=== PATIENT | female | born 1990 | race American Indian/Alaskan Native ===

== ENCOUNTER 2020-12-19 13:13 | Emergency (ER) | payer OTHER ==
[2020-12-19] MEDS ORDERED: ACETAMINOPHEN 325 MG TAB PO ONE (14:53)
--- NOTE | 2020-12-19 14:54 | Emergency Department Report ---
ED Chest Pain HPI - General Chief Complaint: Chest Pain Stated Complaint: CHEST PAIN/SOB PUI?: No Time Seen by Provider: 12/19/20 13:54 Source: patient Mode of arrival: Ambulatory Limitations: No Limitations - History of Present Illness Initial Comments: 30-year-old female who is obese and has a history of iron deficiency anemia but denies any other significant past medical history presents to the ER today with complaints of substernal chest pain. Patient states that the pain started 4 days ago. She states that it has been a sharp, sometimes achy sometimes type pain which has been intermittent in nature with associated "mild" shortness of breath and also associated right-sided abdominal pain which has also been intermittent. She reports mild intermittent nausea but no vomiting. She denies any diarrhea, or any other bowel changes. She reports urinary frequency but denies any dysuria, hematuria or any abnormal vaginal discharge or bleeding. Patient states that her last menstrual cycle was November 12, and she did take a home test and it was positive. She has not followed up with MARRIAGE THERAPIST to establish for care. She states that the chest pain and abdominal pain can be worse depending on certain positions. She states that sometimes when she changes position it tends to relieve the pain sometimes. She denies any lower extremity swelling or calf pain. Patient states that she had a cardiology evaluation around 2010 or 2011. She states at that time she was sent over to the loom blower office because her MARRIAGE THERAPIST thought she may have had a mitral valve prolapse. She states that she had an echocardiogram and also a treadmill stress test at that time and both were normal. Patient denies any history of PE or DVT and other than being she denies any other risk factors for PE or DVT. She is G3, P1 Ab2. She states that she took 1 dose of the Moderna covid vaccine about 3 to 4 weeks ago and has not taken her second dose as yet. Complaint: chest pain -: Gradual - Related Data Previous Rx's Medication Instructions Recorded Last Taken Type Acetaminophen [Acetaminophen 8 650 mg PO Q8HR PRN #20 tablet.er 12/19/20 Unknown Rx Hour] Allergies Allergy/AdvReac Type Severity Reaction Status Date / Time Penicillins Allergy Unknown Verified 12/19/20 13:16 Heart Score - HEART Score History: Slightly suspicious EKG: Normal Age: < 45 Risk factors: 1-2 risk factors Troponin: < normal limit HEART Score: 1 - EKG Read Time Time EKG Completed: 13:34 EKG Read Time: 13:45 - Critical Actions Critical Actions: 0-3 pts:0.9-1.7%risk of adverse cardiac event.Candidate for discharge ED Review of Systems ROS: Stated complaint: CHEST PAIN/SOB Other details as noted in HPI Comment: All other systems reviewed and negative Constitutional: denies: chills, fever Eyes: denies: eye pain, eye discharge, vision change ENT: denies: ear pain, throat pain, dental pain, hearing loss, epistaxis, congestion Respiratory: shortness of breath. denies: cough, orthopnea, SOB with exertion, SOB at rest, wheezing Cardiovascular: chest pain Endocrine: no symptoms reported Gastrointestinal: abdominal pain, nausea. denies: vomiting, diarrhea, constipation, hematemesis, hematochezia Genitourinary: denies: urgency, dysuria, frequency, hematuria, discharge, abnormal menses, dyspareunia Musculoskeletal: denies: back pain, joint swelling, arthralgia Skin: denies: rash, lesions, change in color, change in hair/nails, pruritus Neurological: denies: headache, weakness, numbness, paresthesias, confusion, abnormal gait, vertigo Psychiatric: denies: anxiety, depression, visual hallucinations, homicidal thoughts, suicidal thoughts Hematological/Lymphatic: denies: easy bleeding, easy bruising, swollen glands ED Past Medical Hx - Past Medical History Previous Medical History?: No - Surgical History Past Surgical History?: No - Medications Home Medications: Home Medications Medication Instructions Recorded Confirmed Last Taken Type Acetaminophen [Acetaminophen 8 650 mg PO Q8HR PRN #20 tablet.er 12/19/20 Unknown Rx Hour] ED Physical Exam - General Limitations: No Limitations General appearance: alert, anxious, obese - Head Head exam: Present: atraumatic, normocephalic, normal inspection - Eye Eye exam: Present: normal appearance, PERRL, EOMI Pupils: Present: normal accommodation - ENT ENT exam: Present: normal exam, mucous membranes moist - Respiratory Respiratory exam: Present: normal lung sounds bilaterally. Absent: respiratory distress, wheezes, rales, rhonchi - Cardiovascular Cardiovascular Exam: Present: regular rate, normal rhythm, normal heart sounds - GI/Abdominal GI/Abdominal exam: Present: soft, tenderness (Mild ttp RUQ). Absent: distended, guarding, rebound - Extremities Exam Extremities exam: Present: normal inspection, full ROM. Absent: calf tenderness - Neurological Exam Neurological exam: Present: alert, oriented X3, CN II-XII intact, normal gait - Psychiatric Psychiatric exam: Present: normal affect, normal mood - Skin Skin exam: Present: intact ED Course Vital Signs 12/19/20 12/19/20 13:19 19:28 Temperature 98.4 F Pulse Rate 91 H 86 Respiratory 18 12 Rate Blood Pressure 154/93 146/87 O2 Sat by Pulse 97 100 Oximetry ED Medical Decision Making - Lab Data Result diagrams: 12/19/20 14:56 12/19/20 14:56 - EKG Data -: EKG Interpreted by Pa EKG shows normal: sinus rhythm Rate: normal (93) - Radiology Data Radiology results: report reviewed Patient: ARNOLDO FLETCHER MR#: [id number] : 1990 Acct:[id number] Age/Sex: 30 / F ADM Date: 12/19/20 Loc: ED Attending Dr: Ordering Physician: SAM CASAREZ Date of Service: 12/19/20 Procedure(s): US abdomen limited Accession Number(s): [id number] cc: SAM CASAREZ LIMITED RUQ ABDOMINAL ULTRASOUND INDICATION: RUQ abd pain. COMPARISON: No relevant prior imaging study available. FINDINGS: Pancreas: Visualized portions show no significant abnormality. Abdominal Aorta: No significant abnormality. IVC: No significant abnormality. Liver: No significant abnormality. Normal hepatopedal blood flow in the main portal vein. Gallbladder: No significant abnormality. Bile ducts: No significant abnormality. Common bile duct measures 6 mm. Right kidney: No significant abnormality visualized.. Free fluid: None. Additional Findings: None. IMPRESSION: 1. Normal exam. Signer Name: Ari Cleary MD Signed: 12/19/2020 5:21 PM Workstation Name: [id number] Transcribed By: DANIAL Dictated By: Ari Cleary MD Electronically Authenticated By: Ari Cleary MD Signed Date/Time: 12/19/201720 DD/ 20 TD/TT: Patient: ARNOLDO FLETCHER MR#: [id number] : 1990 Acct:[id number] Age/Sex: 30 / F ADM Date: 12/19/20 Loc: ED Attending Dr: Ordering Physician: SAM CASAREZ Date of Service: 12/19/20 Procedure(s): XR chest 1V ap Accession Number(s): [id number] cc: SAM CASAREZ Fluoro Time In Minutes: CHEST 1 VIEW 12/19/2020 5:02 PM INDICATION / CLINICAL INFORMATION: Chest Pain. COMPARISON: None available. FINDINGS: SUPPORT DEVICES: None. HEART / MEDIASTINUM: No significant abnormality. LUNGS / PLEURA: No significant pulmonary or pleural abnormality. No pneumothorax. ADDITIONAL FINDINGS: No significant additional findings. IMPRESSION: 1. No acute findings. Signer Name: Ari Cleary MD Signed: 12/19/2020 5:13 PM Workstation Name: [id number] Transcribed By: DANIAL Dictated By: Ari Cleary MD Electronically Authenticated By: Ari Cleary MD Signed Date/Time: 12/19/201712 DD/ 12 TD/TT: Patient: ARNOLDO FLETCHER MR#: [id number] : 1990 Acct:[id number] Age/Sex: 30 / F ADM Date: 12/19/20 Loc: ED Attending Dr: Ordering Physician: SAM CASAREZ Date of Service: 12/19/20 Procedure(s): US OB transvaginal Accession Number(s): [id number] cc: SAM CASAREZ OB Ultrasound HISTORY: low abd pain/quant 6298. TECHNIQUE: Grayscale and color imaging performed. COMPARISON: No relevant comparison imaging FINDINGS: Uterus measures 11.8 x 7.1 x 8.4 cm with endometrial echocomplex measuring 16 mm. There is a tiny cystic structure in the endometrium measuring 7 mm which would yield a gestational age of 5 weeks and 3 days which closely matches the clinical gestational age of 5 weeks and 2 days. No yolk sac or pole identified. No cardiac activity. The ovaries are unremarkable with no pelvic free fluid. IMPRESSION: Questionable early intrauterine . Close follow-up r ecommended as needed. Signer Name: Maximilian Martines MD Signed: 12/19/2020 5:58 PM Workstation Name: [id number] Transcribed By: CHANDANA Dictated By: Maximilian Martines MD Electronically Authenticated By: Maximilian Martines MD Signed Date/Time: 12/19/201757 DD/ 55 TD/TT: - Medical Decision Making Labs reviewed -CBC and CMP unremarkable. Troponins negative. EKG shows normal sinus rhythm, without any acute ischemic changes, STEMI or significant dysrhythmia. Chest x-ray shows nothing acute. Urinalysis negative for UTI right upper quadrant abdominal ultrasound negative for anything acute. OB ultrasound shows Uterus measures 11.8 x 7.1 x 8.4 cm with endometrial echo complex measuring 16 mm. There is a tiny cystic structure in the endometrium measuring 7 mm which would yield a gestational age of 5 weeks and 3 days which closely matches the clinical gestational age of 5 weeks and 2 days. No yolk sac or pole identified. No cardiac activity. Patient currently resting comfortably. She is not in any acute pain or respi ratory distress. She has been ambulatory in the ER, with normal gait and she is neurologically intact. Her Vital signs are stable. Patient is , but she is not tachycardic or hypoxic, she has no calf pain or lower extremity swelling, and no other risk factors for PE or DVT. This point, low suspicion that the chest pain is related to a PE. I also do not suspect that the pain is related to unstable angina requiring admission to the hospital. Other than obesity she has no other risk factors for cardiac disease including no family history. Denies any indication at this time for any further testing, or admission to the hospital. Patient is a non surgical abdominal exam and therefore abdominal CT not indicated at this time. Discussed all labs including EKG results, and ultrasound results of chest x-ray results with patient. Exact cause of her symptoms at this time unclear but I recommend close follow-up with her PCP and MARRIAGE THERAPIST. She understands to return to the ER if any of her symptoms worsens. Patient expressed understanding of all instructions and agree with plan. Patient stable at time of discharge Critical care attestation.: If time is entered above; I have spent that time in minutes in the direct care of this critically ill patient, excluding procedure time. ED Disposition Clinical Impression: Nonspecific chest pain, Right sided abdominal pain, Abdominal pain during Disposition: 01 HOME / SELF CARE / HOMELESS Is pt being admited?: No Does the pt Need Aspirin: No Condition: Stable Instructions: Nonspecific Chest Pain, Adult, Abdominal Pain, Adult, Ea sy-to-Read, Abdominal Pain During Additional Instructions: Recommend taking Tylenol as needed for pain. I recommend following up with your MARRIAGE THERAPIST as scheduled next 2 to 3 weeks. Also recommend follow-up with your primary care doctor especially continue to have discomfort in your chest but if your abdominal pain or chest pain worsens in any way return immediately to the ER. Prescriptions: Acetaminophen [Acetaminophen 8 Hour] 650 mg PO Q8HR PRN #20 tablet.er PRN Reason: Pain Referrals: PRIMARY CARE,MD [Primary Care Provider] - 3-5 Days Forms: Work/School Release Form(ED) Time of Disposition: 18:52 Print Language: TAJIK
[2020-12-19 15:34] LABS: Alanine Aminotransferase 12 units/L (7-56); Blood Urea Nitrogen 10 mg/dL (7-17); Calcium 9.2 mg/dL (8.4-10.2); Hemolysis Index 7
[2020-12-19 15:36] LABS: BUN/Creatinine Ratio 14
[2020-12-19 15:37] LABS: Basophils % (Auto) 0.3 % (0.0-1.8); Eosinophils # (Auto) 0.1 K/mm3 (0.0-0.4); Eosinophils % (Auto) 1.3 % (0.0-4.3); Hematocrit 30.6 % (30.3-42.9); Hemoglobin 10.2 gm/dl (10.1-14.3); Lymphocytes # (Auto) 1.9 K/mm3 (1.2-5.4); Lymphocytes % (Auto) 26.7 % (13.4-35.0); Mean Corpuscular HGB Conc 33 % (30-34); Mean Corpuscular Volume 77 fl (79-97); Monocytes # (Auto) 0.5 K/mm3 (0.0-0.8); Monocytes % (Auto) 6.7 % (0.0-7.3); Platelet Count 296 K/mm3 (140-440); Red Cell Distribution Width 18.5 % (13.2-15.2)
--- NOTE | 2020-12-19 17:17 | XRay Report ---
CHEST 1 VIEW 12/19/2020 5:02 PM INDICATION / CLINICAL INFORMATION: Chest Pain. COMPARISON: None available. FINDINGS: SUPPORT DEVICES: None. HEART / MEDIASTINUM: No significant abnormality. LUNGS / PLEURA: No significant pulmonary or pleural abnormality. No pneumothorax. ADDITIONAL FINDINGS: No significant additional findings. IMPRESSION: 1. No acute findings. Signer Name: Ari Cleary MD Signed: 12/19/2020 5:13 PM Workstation Name: [id number]
--- NOTE | 2020-12-19 17:26 | Ultrasound Report ---
LIMITED RUQ ABDOMINAL ULTRASOUND INDICATION: RUQ abd pain. COMPARISON: No relevant prior imaging study available. FINDINGS: Pancreas: Visualized portions show no significant abnormality. Abdominal Aorta: No significant abnormality. IVC: No significant abnormality. Liver: No significant abnormality. Normal hepatopedal blood flow in the main portal vein. Gallbladder: No significant abnormality. Bile ducts: No significant abnormality. Common bile duct measures 6 mm. Right kidney: No significant abnormality visualized.. Free fluid: None. Additional Findings: None. IMPRESSION: 1. Normal exam. Signer Name: Ari Cleary MD Signed: 12/19/2020 5:21 PM Workstation Name: [id number]
--- NOTE | 2020-12-19 18:02 | Ultrasound Report ---
OB Ultrasound HISTORY: low abd pain/quant 6298. TECHNIQUE: Grayscale and color imaging performed. COMPARISON: No relevant comparison imaging FINDINGS: Uterus measures 11.8 x 7.1 x 8.4 cm with endometrial echocomplex measuring 16 mm. There is a tiny cystic structure in the endometrium measuring 7 mm which would yield a gestational age of 5 we eks and 3 days which closely matches the clinical gestational age of 5 weeks and 2 days. No yolk sac or pole identified. No cardiac activity. The ovaries are unremarkable with no pelvic free fluid. IMPRESSION: Questionable early intrauterine . Close follow-up recommended as needed. Signer Name: Maximilian Martines MD Signed: 12/19/2020 5:58 PM Workstation Name: [id number]
[2020-12-19 18:41] LABS: Bilirubin,Urine NEG (Negative); Blood,Urine NEG (Negative); Color,Urine Yellow (Yellow); Mucus,Urine FEW /HPF; Protein,Urine <15 mg/dL mg/dL (Negative); Urobilinogen,Urine < 2.0 mg/dL (<2.0)
[2020-12-19 19:31] VITALS: BP 146/87
--- NOTE | 2020-12-20 08:34 | Electrocardiograph Report ---
[facility] Test Date: 2020-12-19 Test Time: 13:34:26 Pat Name: ARNOLDO FLETCHER Department: Room: Gender: F Wire Fence Erector: NURSE : 1990 Requested By: SAM CASAREZ Order Number: [id number] Reading MD: Nacho Loyd Measurements Intervals [place] Rate: 93 P: 49 OK: 182 QRS: -2 QRSD: 103 T: 42 QT: 360 QTc: 447 Interpretive Statements Sinus rhythm Probable left ventricular hypertrophy No previous ECG available for comparison Electronically Signed On 12-20-2020 8:34:12 EDT by Nacho Loyd
== END 2020-12-19 19:31 | disposition home or self-care (01) ==
LOC: ED 13:13
DX: O26.891 Other specified pregnancy related conditions, first trimester (principal); R07.9 Chest pain, unspecified; R10.9 Unspecified abdominal pain; Z3A.01 Less than 8 weeks gestation of pregnancy; Z88.0 Allergy status to penicillin
CPT/HCPCS: 36415; 71045; 76705; 76817; 80053; 81001; 83690; 84484; 84702; 85025; 93005; 99284

== ENCOUNTER 2021-04-28 07:50 | Emergency (ER) | payer MEDICAID, OTHER ==
[2021-04-28 08:31] VITALS: BP 146/84
--- NOTE | 2021-04-28 09:09 | Emergency Department Report ---
ED Chest Pain HPI - General Chief Complaint: OB/Uterine Contractions Stated Complaint: CHEST PAIN Time Seen by Provider: 04/28/21 08:37 Source: patient, old records reviewed Mode of arrival: Ambulatory Limitations: No Limitations - History of Present Illness Initial Comments: 31-year-old obese female with past medical history hypertension presents to the hospital with multiple complaints. Patient is currently 24 weeks and undergoing care with OB and high risk. Patient complains of intermittent left-sided chest tightness lasting for several seconds at a time before spontaneous resolve. No aggravating or alleviating factors reported. Positive shortness of breath with episodes. Patient denies nausea, vomiting, diaphoresis, or burning sensation in chest. She has bilateral foot and ankle edema thought to be due to the but denies calf tenderness, leg asymmetry, history of PE/DVT, or recent travel. Patient states she was diagnosed with mitral valve prolapse in 2007 after first but was later told that she did not have mitral valve prolapse. No other cardiac history reported. Patient also complains of ongoing left shoulder pain and feels like something is "dislocated". Pain is worse with movement. she denies trauma. She also complains of suprapubic/pelvic pain x1 month that became more severe since yesterday. Feels like she got kicked in the pelvis with a steel toe boot with radiation to vaginal area. Left side is worse than the right. Pain is also worse with walking. She denies dysuria or fever. She mentioned this pain to her PIGGYBACK CLERK for her visit April 17 and her high school art teacher on April [address] [facility] CLAIMS [facility] located in [place] with plans to deliver at [facility] - Related Data Previous Rx's Medication Instructions Recorded Last Taken Type Acetaminophen [Acetaminophen 8 650 mg PO Q8HR PRN #20 tablet.er 12/19/20 Unknown Rx Hour] Allergies Allergy/AdvReac Type Severity Reaction Status Date / Time Penicillins Allergy Unknown Verified 12/19/20 13:16 Heart Score - HEART Score History: Slightly suspicious EKG: Non-specific Age: < 45 Risk factors: 1-2 risk factors Troponin: < normal limit HEART Score: 2 - EKG Read Time Time EKG Completed: 08:33 EKG Read Time: 08:36 ED Review of Systems ROS: Stated complaint: CHEST PAIN Other details as noted in HPI Comment: All other systems reviewed and negative ED Past Medical Hx - Past Medical History Hx Hypertension: Yes - Social History Smoking Status: Unknown if ever smoked - Medications Home Medications: Home Medications Medication Instructions Recorded Confirmed Last Taken Type Acetaminophen [Acetaminophen 8 650 mg PO Q8HR PRN #20 tablet.er 12/19/20 Unknown Rx Hour] ED Physical Exam - General Limitations: No Limitations - Other Other exam information: General: No acute distress Head: Atraumatic Eyes: normal appearance ENT: Moist mucous membranes Neck: Normal appearance, no midline tenderness Chest: Clear to auscultation bilaterally. Chest wall nontender CV: Regular rate and rhythm Abdomen: Soft, normal bowel sounds, nontender, nondistended, no rebound or guarding Back: Normal inspection Extremity: Normal inspection, no tenderness to left shoulder, pedal edema without calf tenderness or asymmetry Neuro: Alert O x 3, no facial asymmetry, speech clear, no gross motor sensory deficit Psych: Appropriate behavior Skin: No rash ED Course Vital Signs 04/28/21 08:26 Temperature 98.3 F Pulse Rate 103 H Respiratory 18 Rate Blood Pressure 146/84 O2 Sat by Pulse 99 Oximetry - Reevaluation(s) Reevaluation #1: 04/28/21 09:08 Patient is greater than 20 weeks and will require transfer to OB for monitoring. However, since patient is here with chest pain complaints I will complete the evaluation, order ultrasound and urine with plan to transfer to OB for monitoring once ED evaluation complete - Consultations Consultation #1: 04/28/21 12:00 Case discussed with PIGGYBACK CLERK doctor on-call Dr. Phan who recommends patient to be sent to labor and delivery for monitoring ED Medical Decision Making - Lab Data Result diagrams: 04/28/21 10:19 04/28/21 10:19 Lab Results 04/28/21 04/28/21 04/28/21 Range/Units 10:19 10:19 10:19 WBC 9.9 (4.5-11.0) K/mm3 RBC 3.79 (3.65-5.03) M/mm3 Hgb 9.5 L (10.1-14.3) gm/dl Hct 30.2 L (30.3-42.9) % MCV 80 (79-97) fl MCH 25 L (28-32) pg MCHC 31 (30-34) % RDW 17.0 H (13.2-15.2) % Plt Count 323 (140-440) K/mm3 Lymph % (Auto) 22.4 (13.4-35.0) % [place] % (Auto) 7.4 H (0.0-7.3) % Eos % (Auto) 1.4 (0.0-4.3) % Baso % (Auto) 0.2 (0.0-1.8) % Lymph # (Auto) 2.2 (1.2-5.4) K/mm3 [place] # (Auto) 0.7 (0.0-0.8) K/mm3 Eos # (Auto) 0.1 (0.0-0.4) K/mm3 Baso # (Auto) 0.0 (0.0-0.1) K/mm3 Seg Neutrophils % 68.6 (40.0-70.0) % Seg Neutrophils # 6.8 (1.8-7.7) K/mm3 PT 13.4 (12.2-14.9) Sec. INR 0.92 (0.87-1.13) D-Dimer 213.71 (0-234) ng/mlDDU Sodium 136 L (137-145) mmol/L Potassium 4.1 (3.6-5.0) mmol/L Chloride 102.8 (98-107) mmol/L Carbon Dioxide 19 L (22-30) mmol/L Anion Gap 18 mmol/L BUN 7 (7-17) mg/dL Creatinine 0.6 (0.6-1.2) mg/dL Estimated GFR > 60 ml/min BUN/Creatinine Ratio 12 % Glucose 105 H (65-100) mg/dL Calcium 9.0 (8.4-10.2) mg/dL Troponin T < 0.010 (0.00-0.029) ng/mL - EKG Data -: EKG Interpreted by Me ([facility]) EKG shows normal: sinus rhythm, ST-T waves (no stemi) Rate: normal (95) - Radiology Data Radiology results: report reviewed CHEST 2 VIEWS INDICATION / CLINICAL INFORMATION: Chest pain. COMPARISON: 12/19/2020 FINDINGS: SUPPORT DEVICES: None. HEART / MEDIASTINUM: No significant abnormality. LUNGS / PLEURA: No significant pulmonary or pleural abnormality. No pneumothorax. ADDITIONAL FINDINGS: No significant additional findings IMPRESSION: 1. No acute findings. US TECHNIQUE: Transabdominal. COMPARISON: 12/19/2020 FINDINGS: NUMBER: Single PRESENTATION: transverse; head to maternal right PLACENTA: anterior and free of the os. MATERNAL ADNEXA: No significant abnormality. AMNIOTIC FLUID VOLUME: normal AMNIOTIC FLUID INDEX (EMMA) in cm (if measured): Not measured ANATOMY: Evaluation for anatomy is limited due to maternal body habitus. Examination is not tailored to evaluate anatomy. No gross anatomic abnormality is identified. MEASUREMENTS: - Biparietal Diameter = 5.9 cm = 24 weeks 1 day - Head Circumference = 21.6 cm = 23 weeks 5 days - Abdominal Circumference = 19.8 cm = 24 weeks 3 days - Femur Length = 4.3 cm = 24 weeks 0 days - Estimated Weight (in grams, if calculated): 673 - Heart Rate (beats per minute): 146 ADDITIONAL FINDINGS: The cervix is poorly visualized. AVERAGE ULTRASOUND AGE (AUA) in weeks, days = 24 weeks 1 day IMPRESSION: 1. Single intrauterine with AUA of 24 weeks 1 day. 2. No significant sonographic abnormality. - Medical Decision Making Patient presents to the hospital with complaints of intermittent chest pain as well as abdominal pain. ED chest pain evaluation unremarkable with a low pretest probability for pulmonary embolism, no signs of DVT, and a D-dimer less than 250. Patient also has an EKG without ischemic findings, and negative troponin, normal chest x-ray, and no chest pain while in the ED. Chest pain also appears to be intermittent and chronic without any signs of hypoxia. Patient also endorses abdominal pain x1 month that acutely worsened. ultrasound confirms 24-week IUP without acute abnormality. Urine collected with results pending at time to disposition. Case discussed with Dr. Phan on- call PIGGYBACK CLERK since patient's primary OB is not affiliated here. She will be sent to labor and delivery for monitoring and discharged from the ED care Critical Care Time: No Critical care attestation.: If time is entered above; I have spent that time in minutes in the direct care of this critically ill patient, excluding procedure time. ED Disposition Clinical Impression: Atypical chest pain, 24 weeks gestation of , Pelvic pain Disposition: HOME / SELF CARE / HOMELESS Is pt being admited?: No Does the pt Need Aspirin: No Condition: Stable Instructions: Nonspecific Chest Pain, Adult, Second Trimester of Additional Instructions: Take Tylenol as needed for pain. Return if symptoms worsen. Follow-up with cardiology (Dr. Mcgrath) as an outpatient. Go directly to labor and delivery upon discharge for further fetus evaluation Referrals: PRIMARY CAREMD [Primary Care Provider] - 3-5 Days ALICIA MCGRATH MD [Staff Physician] - 3-5 Days ([facility]) Time of Disposition: 12:17
[2021-04-28 11:06] LABS: Basophils % (Auto) 0.2 % (0.0-1.8); Eosinophils # (Auto) 0.1 K/mm3 (0.0-0.4); Eosinophils % (Auto) 1.4 % (0.0-4.3); Hematocrit 30.2 % (30.3-42.9); Hemoglobin 9.5 gm/dl (10.1-14.3); Lymphocytes # (Auto) 2.2 K/mm3 (1.2-5.4); Lymphocytes % (Auto) 22.4 % (13.4-35.0); Mean Corpuscular HGB Conc 31 % (30-34); Mean Corpuscular Volume 80 fl (79-97); Monocytes # (Auto) 0.7 K/mm3 (0.0-0.8); Monocytes % (Auto) 7.4 % (0.0-7.3); Platelet Count 323 K/mm3 (140-440); Red Blood Count 3.79 M/mm3 (3.65-5.03)
[2021-04-28 11:17] LABS: INR 0.92 (0.87-1.13)
[2021-04-28 11:29] LABS: Blood Urea Nitrogen 7 mg/dL (7-17); Hemolysis Index 8
[2021-04-28 11:31] LABS: BUN/Creatinine Ratio 12
[2021-04-28 12:04] LABS: Bilirubin,Urine NEG (Negative); Blood,Urine NEG (Negative); Color,Urine Yellow (Yellow); Mucus,Urine 1+ /HPF; Urobilinogen,Urine < 2.0 mg/dL (<2.0)
--- NOTE | 2021-04-28 23:52 | XRay Report ---
CHEST 2 VIEWS INDICATION / CLINICAL INFORMATION: Chest pain. COMPARISON: 12/19/2020 FINDINGS: SUPPORT DEVICES: None. HEART / MEDIASTINUM: No significant abnormality. LUNGS / PLEURA: No significant pulmonary or pleural abnormality. No pneumothorax. ADDITIONAL FINDINGS: No significant additional findings. IMPRESSION: 1. No acute findings. Signer Name: Ari Cleary MD Signed: 04/28/2021 10:05 AM Workstation Name: [id number]
--- NOTE | 2021-04-28 23:52 | Ultrasound Report ---
ULTRASOUND OBSTETRIC COMPLETE INDICATION / CLINICAL INFORMATION: pelvic pain. Clinical Gestational Age (GA) in weeks, days: 23 weeks 6 days TECHNIQUE: Transabdominal. COMPARISON: 12/19/2020 FINDINGS: NUMBER: Single PRESENTATION: transverse; head to maternal right PLACENTA: anterior and free of the os. MATERNAL ADNEXA: No significant abnormality. AMNIOTIC FLUID VOLUME: normal AMNIOTIC FLUID INDEX (EMMA) in cm (if measured): Not measured ANATOMY: Evaluation for anatomy is limited due to maternal body habitus. Examination is not tailored to evaluate anatomy. No gross anatomic abnormality is identified. MEASUREMENTS: - Biparietal Diameter = 5.9 cm = 24 weeks 1 day - Head Circumference = 21.6 cm = 23 weeks 5 days - Abdominal Circumference = 19.8 cm = 24 weeks 3 days - Femur Length = 4.3 cm = 24 weeks 0 days - Estimated Weight (in grams, if calculated): 673 - Heart Rate (beats per minute): 146 ADDITIONAL FINDINGS: The cervix is poorly visualized. AVERAGE ULTRASOUND AGE (AUA) in weeks, days = 24 weeks 1 day IMPRESSION: 1. Single intrauterine with AUA of 24 weeks 1 day. 2. No significant sonographic abnormality. Signer Name: Sami Laura MD Signed: 04/28/2021 10:15 AM Workstation Name: [id number]
--- NOTE | 2021-04-29 13:25 | Electrocardiograph Report ---
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
== END 2021-04-28 12:33 | disposition home or self-care (01) ==
LOC: ED 07:50
DX: O26.892 Other specified pregnancy related conditions, second trimester (principal); R07.89 Other chest pain; R10.2 Pelvic and perineal pain; Z3A.24 24 weeks gestation of pregnancy; I10 Essential (primary) hypertension
CPT/HCPCS: 36415; 71046; 76805; 80048; 81001; 84484; 85025; 85379; 85610; 87086; 93005; 93010; 99284

== ENCOUNTER 2021-07-01 09:23 | Emergency (ER) | payer MEDICAID ==
[2021-07-01 09:57] VITALS: BP 133/81
--- NOTE | 2021-07-01 12:21 | XRay Report ---
XR wrist 3+V RT INDICATION / CLINICAL INFORMATION: trauma. COMPARISON: None available. FINDINGS: No acute fracture. Normal alignment. Joint spaces are preserved. No destructive osseous lesion or s uspicious periosteal reaction. Impression: 1.No acute fracture. Signer Name: Villa Triplett MD Signed: 07/01/2021 12:17 PM Workstation Name: [id number]
--- NOTE | 2021-07-01 15:05 | Emergency Department Report ---
ED Extremity Problem HPI - General Chief complaint: Extremity Injury, Upper Stated complaint: WRIST PAIN/7 MOS PREG Source: patient Mode of arrival: Ambulatory Limitations: No Limitations - History of Present Illness Initial comments: Patient is a A0 29-year-old -Beninese female with no past medical history and who is approximately 33 weeks gestation presents to the ED with complaint of acute onset persistent nontraumatic bilateral shoulder and right wrist pain for the last 1 week. Patient states that the pain is worse on active range of motion, physical activity or heavy lifting. Patient denies dizziness, syncope, fever, chills, abdominal pain, vaginal bleeding, vaginal discharge, chest pain or shortness of breath and headache. MD Complaint: extremity pain (Right wrist pain), other (Bilateral shoulder pain) -: Sudden, week(s) (1) Location: right, upper extremity (Bilateral shoulder pain and right wrist pain) History of Same: No -: Yes arthralgia Radiation: none Severity scale (0 -10): 6 Quality: aching, sharp Consistency: constant Improves with: nothing Worsens with: weight bearing, palpation Associated Symptoms: denies other symptoms, arthralgias (Bilateral shoulder pain and right wrist pain). denies: chest pain, shortness of breath, fever, emily lgias, rash - Related Data Previous Rx's Medication Instructions Recorded Last Taken Type Acetaminophen [Acetaminophen 8 650 mg PO Q8HR PRN #20 tablet.er 12/19/20 Unknown Rx Hour] Acetaminophen [Tylenol] 500 mg PO Q6HR PRN #40 tablet 07/01/21 Unknown Rx predniSONE [Deltasone] 40 mg PO QDAY #12 tab 07/01/21 Unknown Rx Allergies Allergy/AdvReac Type Severity Reaction Status Date / Time Penicillins Allergy Unknown Verified 07/01/21 09:57 ED Review of Systems ROS: Stated complaint: WRIST PAIN/7 MOS PREG Other details as noted in HPI Constitutional: denies: chills, fever Eyes: denies: eye pain, eye discharge, vision change ENT: denies: ear pain, throat pain Respiratory: denies: cough, shortness of breath, wheezing Cardiovascular: denies: chest pain, palpitations Endocrine: no symptoms reported Gastrointestinal: denies: abdominal pain, nausea, diarrhea Genitourinary: denies: urgency, dysuria, discharge Musculoskeletal: arthralgia (Bilateral shoulder pain and right wrist pain). denies: back pain, joint swelling Skin: denies: rash, lesions Neurological: denies: headache, weakness, paresthesias Psychiatric: denies: anxiety, depression Hematological/Lymphatic: denies: easy bleeding, easy bruising ED Past Medical Hx - Past Medical History Previous Medical History?: Yes Hx Hypertension: No Hx Diabetes: No Hx Deep Vein Thrombosis: No Hx Renal Disease: No Hx Sickle Cell Disease: No Hx Seizures: No Hx Asthma: No Hx HIV: No Additional medical history: gestational diabetes - Social History Smoking Status: Never Smoker - Medications Home Medications: Home Medications Medication Instructions Recorded Confirmed Last Taken Type Acetaminophen [Acetaminophen 8 650 mg PO Q8HR PRN #20 tablet.er 12/19/20 Unknown Rx Hour] Acetaminophen [Tylenol] 500 mg PO Q6HR PRN #40 tablet 07/01/21 Unknown Rx predniSONE [Deltasone] 40 mg PO QDAY #12 tab 07/01/21 Unknown Rx ED Physical Exam - General Limitations: No Limitations General appearance: alert, in no apparent distress - Head Head exam: Present: atraumatic, normocephalic, normal inspection - Eye Eye exam: Present: normal appearance, PERRL, EOMI Pupils: Present: normal accommodation - ENT ENT exam: Present: normal exam, normal orophraynx, mucous membranes moist, TM's normal bilaterally, normal external ear exam - Neck Neck exam: Present: normal inspection, full ROM. Absent: tenderness - Respiratory Respiratory exam: Present: normal lung sounds bilaterally. Absent: respiratory distress, wheezes, rales, rhonchi, chest wall tenderness, accessory muscle use, decreased breath sounds, prolonged expiratory - Cardiovascular Cardiovascular Exam: Present: normal rhythm, tachycardia, normal heart sounds. Absent: systolic murmur, diastolic murmur, rubs, gallop - GI/Abdominal GI/Abdominal exam: Present: soft, normal bowel sounds. Absent: tenderness, guarding, hyperactive bowel sounds, hypoactive bowel sounds - Extremities Exam Extremities exam: Present: normal inspection, full ROM, tenderness (Palpable right wrist tenderness), other (Palpable mild bilateral shoulder tenderness). Absent: normal capillary refill, pedal edema, joint swelling - Back Exam Back exam: Present: normal inspection, full ROM. Absent: tenderness, CVA tenderness (R), CVA tenderness (L), muscle spasm - Neurological Exam Neurological exam: Present: alert, oriented X3, CN II-XII intact, normal gait, reflexes normal - Psychiatric Psychiatric exam: Present: normal affect, normal mood - Skin Skin exam: Present: warm, dry, intact, normal color. Absent: rash ED Course Vital Signs 07/01/21 09:50 Temperature 98.5 F Pulse Rate 116 H Respiratory 18 Rate Blood Pressure 133/81 O2 Sat by Pulse 97 Oximetry ED Medical Decision Making - Radiology Data Radiology results: report reviewed, image reviewed [facility] [address] [place] [address] XRay Report Signed Patient: ARNOLDO FLETCHER MR#: [id number] : 1990 Acct:[id number] Age/Sex: 31 / F ADM Date: 07/01/21 Loc: ED Attending Dr: Ordering Physician: BHAVIK VERA MD Date of Service: 07/01/21 Procedure(s): XR wrist 3+V RT Accession Number(s): [id number] cc: ED MD JODY Fluoro Time In Minutes: XR wrist 3+V RT INDICATION / CLINICAL INFORMATION: trauma. COMPARISON: None available. FINDINGS: No acute fracture. Normal alignment. Joint spaces are preserved. No destructive osseous lesion or suspicious periosteal reaction. Impression: 1.No acute fracture. Signer Name: Villa Triplett MD Signed: 07/01/2021 12:17 PM Workstation Name: [id number] Transcribed By: Dictated By: Villa Triplett MD Electronically Authenticated By: Villa Triplett MD Signed Date/Time: 07/01/21 121 DD/ 15 TD/TT: Print Cancel - Medical Decision Making This is a A0 29-year-old -Beninese female with no past medical history and who is approximately 33 weeks gestation presents to the ED with complaint of acute onset persistent nontraumatic bilateral shoulder and right wrist pain for the last 1 week. Patient states that the pain is worse on active range of motion, physical activity or heavy lifting. In the ED, patient is alert and oriented x3 and is not in any distress. The right wrist x-ray showed no acute fractures or subluxation. Patient was discharged home on medications and advised to follow-up with her AUTHORIZATION REP physician in 7 to 10 days for reevaluation. Patient was advised return to the ED immediately if symptoms get worse. - Differential Diagnosis Muscle strain; tendinitis; muscle spasm; Critical care attestation.: If time is entered above; I have spent that time in minutes in the direct care of this critically ill patient, excluding procedure time. ED Disposition Clinical Impression: Right wrist tendinitis Muscle strain of shoulder region Qualifiers: Encounter type: initial encounter Laterality: unspecified laterality Qualified Code(s): S46.919A - Strain of unspecified muscle, fascia and tendon at shoulder and upper arm level, unspecified arm, initial encounter Sprain of right wrist Qualifiers: Encounter type: initial encounter Qualified Code(s): S63.501A - Unspecified sprain of right wrist, initial encounter Disposition: HOME / SELF CARE / HOMELESS Is pt being admited?: No Does the pt Need Aspirin: No Condition: Stable Instructions: Muscle Strain, [id number], Tendinitis, [id number] Additional Instructions: The right wrist x-ray showed no acute fractures or subluxation. Based on the history and physical exam findings, your symptoms are likely due to muscle strain or tendinitis of the right wrist. Therefore take medications as advised, drink plenty of fluids and follow-up with your primary care physician or AUTHORIZATION REP physician in 7 to 10 days for reevaluation. Return to the ED immediately if symptoms get worse. Prescriptions: Acetaminophen [Tylenol] 500 mg PO Q6HR PRN #40 tablet PRN Reason: Pain , Severe (7-10) predniSONE [Deltasone] 40 mg PO QDAY #12 tab Referrals: COY STAHL MD [Primary Care Provider] - 3-5 Days Time of Disposition: 15:07 Print Language: BELIZEAN
== END 2021-07-01 15:18 | disposition home or self-care (01) ==
LOC: ED 09:23
DX: O26.893 Other specified pregnancy related conditions, third trimester (principal); S46.919A Strain of unspecified muscle, fascia and tendon at shoulder and upper arm level, unspecified arm, initial encounter; S63.501A Unspecified sprain of right wrist, initial encounter; Z3A.33 33 weeks gestation of pregnancy; Z88.0 Allergy status to penicillin; X58.XXXA Exposure to other specified factors, initial encounter; Y93.89 Activity, other specified; Y92.89 Other specified places as the place of occurrence of the external cause; Y99.8 Other external cause status
CPT/HCPCS: 99283